=== PATIENT | male | born 1965 | race Two or more races ===

== ENCOUNTER 2023-02-20 17:03 | Outpatient (CLI) | payer SELFPAY | END 2023-02-20 23:59 | disposition EMS.NT | LOC: EMS 17:03 | DX: M54.50 Low back pain, unspecified (principal); M25.551 Pain in right hip; V49.40XA Driver injured in collision with unspecified motor vehicles in traffic accident, initial encounter; Y92.413 State road as the place of occurrence of the external cause ==

== ENCOUNTER 2023-02-20 17:58 | Emergency (ER) | payer SELFPAY ==
[2023-02-20] MEDS ORDERED: KETOROLAC 30 MG/ML VIAL IM STA (18:28)
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
[2023-02-20 19:22] VITALS: BP 140/84
== END 2023-02-20 19:21 | disposition home or self-care (01) ==
LOC: ED 17:58
DX: S39.012A Strain of muscle, fascia and tendon of lower back, initial encounter (principal); V89.2XXA Person injured in unspecified motor-vehicle accident, traffic, initial encounter; Y92.410 Unspecified street and highway as the place of occurrence of the external cause
CPT/HCPCS: 96372; 99283